=== PATIENT | female | born 1990 | race African-American/Black ===

== ENCOUNTER 2020-12-30 13:48 | Emergency (ER) | payer BC ==
[2020-12-30] MEDS ORDERED: Dexamethasone 10 MG/ML VIAL ONE (16:05)
== END 2020-12-30 16:12 | disposition home or self-care (01) ==
LOC: CSHERS 13:48
DX: J04.0 Acute laryngitis (principal); B34.9 Viral infection, unspecified
CPT/HCPCS: 87081; 87430; 99283; J1100

== ENCOUNTER 2021-06-16 09:17 | Emergency (ER) | payer BC ==
[2021-06-16 10:22] LABS: #Eosinphils 0.1 10x3/uL (0.0-0.5); #Monocytes 0.3 10x3/uL (0.0-1.1); #Neutrophils 2.4 10x3/uL (1.5-8.4); %Basophils 0.8 % (0.0-2.0); %Eosinophils 1.3 % (0.0-6.0); %Lymphocytes 30.4 % (18.0-47.0); %Monocytes 7.8 % (0.0-10.0); %Neutrophils 59.4 % (40.0-75.0); Hemoglobin 9.3 g/dL (12.0-15.5); Mean Corpuscular HGB CONC 29.7 g/dL (32.0-36.0); Mean Corpuscular Hemoglobin 21.2 pg (27.0-33.0); Mean Corpuscular Volume 71.3 fl (81.6-98.3); Mean Platelet Volume 9.4 fl (7.4-10.4); Platelet Count 550 10x3/uL (150-450); RBC Distribution Width 20.2 % (11.5-14.5); Red Blood Cell (RBC) Count 4.39 10x6/uL (3.90-5.03)
[2021-06-16 10:27] LABS: Bilirubin Neg (Negative); Blood, Urine 250 (Negative); Clarity Clear (Clear); Glucose, Urine (Dipstick) Normal (Negative); Ketone, Urine Negative (Negative); Leukocyte 100 (Negative); Nitrite Negative (Negative); Protein, Urine (Dipstick) 15 mg/dl (Neg-Trace); Urobilinogen Normal mg/dL (Less than 2)
[2021-06-16 10:29] LABS: ALT (SGPT) 22 U/L (8-55); AST (SGOT) 27 U/L (5-34); Albumin 4.4 g/dL (3.5-5.0); Alkaline Phosphatase 75 U/L (40-110); Anion Gap 12 mmol/L (10-20); BUN (Urea Nitrogen) 10 mg/dL (7.0-18.7); Bilirubin, Total 0.3 mg/dL (0.2-1.2); Calc. Creatinine Clearance 0 mL/min (70-130); Calcium 9.5 mg/dL (7.8-10.44); Carbon Dioxide 22 mmol/L (22-29); Chloride 108 mmol/L (98-107); Globulin 3.5 g/dL (2.4-3.5); Glucose 93 mg/dL (70-105); Potassium 4.2 mmol/L (3.5-5.1); Protein, Total 7.9 g/dL (6.0-8.3); Sodium 138 mmol/L (136-145)
[2021-06-16 10:31] LABS: Pregnancy Test - Urine (BHCG) Negative (Negative); Pregu Control Background? CLEAR/WHITE (CLR/WHITE); Pregu Control Bar Appear? YES (CONTROL BAR)
[2021-06-16 10:34] LABS: RBC/HPF 21-50 HPF (0-3)
[2021-06-16 10:35] LABS: Bacteria/HPF 1+ HPF (None Seen)
[2021-06-16 10:39] LABS: Hypochromia SLIGHT = 6-15 cells (100X) (0-5/hpf); Ovalocytes SLIGHT = 2-5 cells (100X) (0-1/hpf)
[2021-06-16 10:40] LABS: Platelet Morphology Comment Appears Increased
[2021-06-16] MEDS ORDERED: Metoclopramide HCl 10 MG/2 ML VIAL ONE (10:41)
[2021-06-16] MEDS ORDERED: diphenhydrAMINE 50 MG/ML VIAL ONE (10:41)
[2021-06-16] MEDS ORDERED: Ketorolac Tromethamine 30 MG/ML VIAL ONE (10:41)
== END 2021-06-16 12:19 | disposition home or self-care (01) ==
LOC: CSHERS 09:17
DX: G43.909 Migraine, unspecified, not intractable, without status migrainosus (principal); R31.9 Hematuria, unspecified
CPT/HCPCS: 80053; 81003; 81015; 81025; 85025; 96365; 96375; J1200; J1885; J2765

== ENCOUNTER 2021-12-24 18:08 | Emergency (ER) | payer BC | END 2021-12-24 19:30 | disposition home or self-care (01) | LOC: CSHERS 18:08 | DX: B34.9 Viral infection, unspecified (principal); F17.210 Nicotine dependence, cigarettes, uncomplicated | CPT/HCPCS: 87804; 99283 ==

== ENCOUNTER 2022-09-17 08:49 | Emergency (ER) | payer BC, SELFPAY ==
[2022-09-17] MEDS ORDERED: Dexamethasone 4 mg/ml Vial ONE (09:26)
[2022-09-17] MEDS ORDERED: Dexamethasone 10 MG/ML VIAL ONE (09:26)
[2022-09-17 10:24] LABS: SARS-CoV-2 NAA Rapid Test DETECTED (NotDetected)
== END 2022-09-17 10:05 | disposition home or self-care (01) ==
LOC: CSHERS 08:49
DX: J02.9 Acute pharyngitis, unspecified (principal); J06.9 Acute upper respiratory infection, unspecified; Z20.822 Contact with and (suspected) exposure to COVID-19; F17.210 Nicotine dependence, cigarettes, uncomplicated
CPT/HCPCS: 99283; J1100

== ENCOUNTER 2023-07-30 14:47 | Emergency (ER) | payer BC, SELFPAY ==
[2023-07-30 15:57] LABS: SARS-CoV-2 NAA Rapid Test Not Detected (NotDetected)
== END 2023-07-30 16:18 | disposition home or self-care (01) ==
LOC: CSHERS 14:47
DX: J11.1 Influenza due to unidentified influenza virus with other respiratory manifestations (principal)
CPT/HCPCS: 71045

== ENCOUNTER 2024-06-02 12:09 | Emergency (ER) | payer SELFPAY ==
[2024-06-02] MEDS ORDERED: Ketorolac Tromethamine 30 MG (1 mL) VIAL ONE (13:00)
[2024-06-02] MEDS ORDERED: Dexamethasone 10 MG/ML VIAL ONE (13:00)
[2024-06-02] MEDS ORDERED: Lidocaine Viscous Sol 2% 15 ml UD Cup ONE (13:01)
== END 2024-06-02 13:31 | disposition home or self-care (01) ==
LOC: CSHERS 12:09
DX: J02.9 Acute pharyngitis, unspecified (principal)
CPT/HCPCS: 96372; 99282; J1100; J1885

== ENCOUNTER 2025-08-06 10:11 | Emergency (ER) | payer BC, SELFPAY | END 2025-08-06 11:30 | disposition home or self-care (01) | LOC: CSHERS 10:11 | DX: J10.1 Influenza due to other identified influenza virus with other respiratory manifestations (principal); I10 Essential (primary) hypertension; F17.290 Nicotine dependence, other tobacco product, uncomplicated; Z79.899 Other long term (current) drug therapy | CPT/HCPCS: 87428; 99284; Q0162 ==